=== PATIENT | female | born 1940 | race Caucasian/White ===

== ENCOUNTER → 2017-09-26 15:55 | Outpatient (CLI) | payer OTHER, SELFPAY ==
--- NOTE | 2017-09-26 16:05 | EKG12_ITS ---
Test Reason : PRE OP Blood Pressure : / mmHG Vent. Rate : 067 BPM Atrial Rate : 067 BPM P-R Int : 178 ms QRS Dur : 076 ms QT Int : 390 ms P-R-T Axes : 067 -16 102 degrees QTc Int : 412 ms Normal sinus rhythm ST & T wave abnormality, consider lateral ischemia Abnormal ECG Confirmed by AMBER PERAZA ([id number]), advertising editor LEXII LEGGETT ([id number] on 10/08/2017 4:48:52 PM Referred By: Ashok Leggett Confirmed By:AMBER PERAZA
== END ==
PROVIDERS: Family Provider Family Medicine; PCP Family Medicine; Visit Provider Orthopaedic Surgery
DX: Z01.810 Encounter for preprocedural cardiovascular examination (principal)
CPT/HCPCS: 93005

== ENCOUNTER → 2017-10-11 06:21 | Outpatient (CLI) | payer OTHER, SELFPAY ==
--- NOTE | 2017-10-11 06:23 | ECHOD_ITS ---
Reason For Study: ABNORMAL EKG, PRE-OP Procedure This was a 2D Doppler, Color Flow transthoracic echocardiogram. The exam was of adequate technical quality. Exam performed in department. Left Ventricle Normal LV size. Left ventricular systolic function is normal. The estimated ejection fraction is 60 %. There is evidence of diastolic dysfunction. No regional wall motion abnormalities noted. Right Ventricle Normal RV size. Normal systolic function. Atria The left atrium is moderately enlarged. Normal right atrium. No doppler evidence for ASD. Mitral Valve There is moderate mitral annular calcification. Extension of the mitral annular calcification onto the posterior mitral valve leaflet. Mild (1+) mitral valve insufficiency. Tricuspid Valve Normal tricuspid valve. Trivial tricuspid valve insufficiency. Right ventricular systolic pressure estimated to be 30 mmHg. Aortic Valve Trisinus/trileaflet aortic valve. Mild focal aortic valve calcification. Pulmonic Valve The pulmonic valve is not well visualized. Trivial pulmonic valve insufficiency. Great Vessels Normal sized aortic root. Pericardium/Pleural No pericardial effusion. MMode/2D Measurements & Calculations LVIDd: 4.5 cm IVSd: 1.0 cm Ao root diam: 2.6 cm LVIDs: 3.0 cm LVPWd: 1.0 cm LA dimension: 3.7 cm RVDd: 2.5 cm FS: 32.9 % LAV(MOD-bp): 65.5 ml LVAd ap4: 23.4 cm2 SV(MOD-sp4): 33.6 ml LAV(MOD-bp) Indexed: 36.0 ml/m2 EDV(MOD-sp4): 66.1 ml LAV(MOD-sp2): 65.6 ml EDV(sp4-el): 72.7 ml LAV(MOD-sp4): 60.3 ml LVAs ap4: 14.5 cm2 ESV(MOD-sp4): 32.5 ml ESV(sp4-el): 33.7 ml EF(MOD-sp4): 50.8 % EF(sp4-el): 53.6 % SV(sp4-el): 39.0 ml LA A4 area: 20.9 cm2 RA A4 area: 12.2 cm2 Doppler Measurements & Calculations MV E max salty: 87.7 cm/sec Lat Peak E' Salty: 7.8 cm/sec Med Peak E' Salty: 5.7 cm/sec MV A max salty: 95.0 cm/sec E/E' lat: 11.3 E/E' med: 15.4 MV E/A: 0.92 Ao V2 max: 196.0 cm/sec LV V1 max: 108.4 cm/sec PA V2 max: 121.8 cm/sec Ao max P.4 mmHg LV V1 max P.7 mmHg TR max salty: 258.9 cm/sec TR max P.8 mmHg Interpretation Summary Left ventricular systolic function is normal. The estimated ejection fraction is 60 %. The left atrium is moderately enlarged. There is moderate mitral annular calcification. Extension of the mitral annular calcification onto the posterior mitral valve leaflet. Mild (1+) mitral valve insufficiency. Trivial tricuspid valve insufficiency. Mild focal aortic valve calcification. Trivial pulmonic valve insufficiency. Right ventricular systolic pressure estimated to be 30 mmHg. There is evidence of diastolic dysfunction. Ordering Physician: Alexis Silva Referring Physician: GISELA MOTA Performed By: Lillian Lynne RDCS
--- NOTE | 2017-10-11 12:59 | STRESSREP_ITS ---
Stress Test Report Date: 10/11/2017 Procedure: Pharmacologic stress nuclear imaging study Indications: Abnormal ECG; preoperative cardiovascular evaluation Consent: Per the patient Procedure: The patient underwent pharmacologic (Regadenoson) evaluation with a peak heart rate of 62 beats per minute (43 predicted maximal heart rate) and a peak blood pressure of 130/72 mmHg. The baseline ECG demonstrated sinus bradycardia with nonspecific T-wave abnormality. The peak pharmacologic ECG demonstrated no obvious ECG changes. There were no cardiac dysrhythmias pretest, during pharmacologic infusion, or recovery. There was no complaint of chest discomfort during pharmacologic infusion or recovery. The examination was discontinued secondary to completion of protocol. Impression: 1. Pharmacologic (Regadenoson) evaluation 2. Peak pharmacologic ECG with no obvious ECG changes. 3. Were no cardiac dysrhythmias pretest, during pharmacologic infusion, or recovery 4. Nuclear images pending Myocardial perfusion imaging study: Technique: The patient was injected with 11.7 millicuries of technetium 99m Cardiolite and subsequently rest SPECT Cardiolite nuclear imaging was obtained in the horizontal long, vertical long, and short axis views. The patient underwent pharmacologic (Regadenoson) evaluation with a peak heart rate of 62 beats per minute (43 % percent predicted maximal heart rate) and a peak blood pressure of 130/72 mmHg. The patient was injected with 33.3 millicuries of technetium 99m Cardiolite and subsequently stress SPECT Cardiolite nuclear imaging was obtained in the horizontal long, vertical long, and short axis views. A gated Cardiolite study at peak stress was obtained. Interpretation: Rest and stress SPECT Cardiolite nuclear imaging status post realignment, normalization, and attenuation correction demonstrate active uniform tracer uptake and myocardial perfusion appearing within normal limits. There is end systolic thickening and brightening. The gated Cardiolite study demonstrates myocardial thickening and inward wall motion. The reported LVEF is 73 %. Impression: 1. Rest and stress SPECT Cardiolite nuclear imaging demonstrate relative uniform tracer uptake and myocardial perfusion appearing within normal limits. 2. The gated Cardiolite study reports an LVEF of 73 %. This note was generated with [employer] software. It may contain incorrect words, spelling, and punctuation that were not noted in checking the note before signing.
== END ==
PROVIDERS: Family Provider Family Medicine; PCP Family Medicine; Visit Provider Internal Medicine Cardiovascular Disease
DX: R94.31 Abnormal electrocardiogram [ECG] [EKG] (principal)
CPT/HCPCS: 78452; 93017; 93306; A9500; A4216; J2785